=== PATIENT | female | born 1970 | race Caucasian/White ===

== ENCOUNTER 2018-03-06 08:41 | Outpatient (CLI) | payer OTHER ==
--- NOTE | 2018-03-12 15:49 | MMO ---
ANNUAL DIGITAL SCREENING MAMMOGRAPHY: HISTORY: This 48-year-old presents. FINDINGS: Digital screening mammography performed. Images are also evaluated using computer-aided detection. Images demonstrate fibroglandular tissue seen in both breasts. No definite evidence of masses or les ions seen. No evidence of significant interval changes or abnormalities seen. No evidence of microc alcifications or architectural distortions seen. IMPRESSION: BIRADS category 1 - negative exam. BIRADS 1: Negative Routine annual screening mammography (for women over age 40) POS: [place]
== END 2018-03-06 08:42 | disposition home or self-care (01) ==
LOC: SCSMAMMO 08:41
PROVIDERS: ATTEND Family Medicine
DX: Z12.31 Encounter for screening mammogram for malignant neoplasm of breast (principal)
CPT/HCPCS: 77067